=== PATIENT | male | born 1970 | race Caucasian/White ===

== ENCOUNTER 2019-11-13 18:05 | Emergency (ER) | payer BC, OTHER, SELFPAY ==
--- NOTE | 2019-11-13 19:02 | RAD ---
LEFT ELBOW FOUR VIEWS: History: Tripped and fell. Elbow deformity. FINDINGS: There is soft tissue swelling adjacent to the medial epicondyle region. There is no underlying fractu re. No joint effusion is identified. Bony densities adjacent to the common extensor tendon origin are consistent with ENESTHOPATHY type change. IMPRESSION: No acute injury. POS: [facility]
[2019-11-13] MEDS ORDERED: HYDROcodone/Acetaminophen 5/325 mg Tablet ONE (19:38)
== END 2019-11-13 19:57 | disposition home or self-care (01) ==
LOC: ERS 18:05
DX: S53.105A Unspecified dislocation of left ulnohumeral joint, initial encounter (principal); I10 Essential (primary) hypertension; B20 Human immunodeficiency virus [HIV] disease; F32.9 Major depressive disorder, single episode, unspecified; F17.210 Nicotine dependence, cigarettes, uncomplicated; Z79.899 Other long term (current) drug therapy; W18.30XA Fall on same level, unspecified, initial encounter